=== PATIENT | female | born 2000 | race Two or more races ===

== ENCOUNTER 2021-05-02 23:44 | Emergency (ER) | payer MEDICAID ==
[~2021-05-02] VITALS: Ht 154.9 cm; Wt 61.7 kg
[2021-05-02 23:44] VITALS: BP 105/64
[2021-05-03 01:21] LABS: Basophils # (auto) 0.1 10 ^3/uL (0-0.2); Basophils % (auto) 0.7 % (0.0-2.0); Eosinophils # (auto) 0.7 10 ^3/uL (0-0.8); Eosinophils % (auto) 5.8 % (0.0-7.0); Hematocrit 41.9 % (36.0-46.0); Hemoglobin 14.4 g/dL (12.2-16.2); Lymphocytes # (auto) 4.7 10 ^3/uL (0.4-5.4); Lymphocytes % (auto) 37.2 % (10.0-50.0); Mean Corpuscular Hemoglobin 30.7 pg (28.0-32.0); Mean Corpuscular Hgb Conc. 34.4 g/dL (32.0-36.0); Mean Corpuscular Volume 89.2 fL (80.0-100.0); Monocytes # (auto) 0.7 10 ^3/uL (0-1.3); Monocytes % (auto) 5.3 % (0.0-12.0); Neutrophils # (auto) 6.5 10 ^3/uL (1.6-8.6); Nucleated Red Blood Cells % 0.1 %; Platelet Count (auto) 299 10^3/uL (140-450); Red Cell Distribution Width 12.8 % (11.8-14.3); White Blood Cell 12.8 10^3/uL (4.4-10.8)
[2021-05-03 01:35] LABS: Albumin 3.7 g/dL (3.4-5.0); Anion Gap 6 (5-15); Blood Urea Nitrogen 15 mg/dL (7-18); Calcium 8.5 mg/dL (8.5-10.1); Carbon Dioxide 26 mmol/L (21-32); Chloride 105 mmol/L (98-107); Glucose 88 mg/dL (74-106); Magnesium 1.7 mg/dL (1.6-2.6); Potassium 3.9 mmol/L (3.5-5.1); Sodium 137 mmol/L (136-145)
[2021-05-03 01:38] LABS: Alanine Aminotransferase 20 U/L (13-56); Aspartate Aminotransferase 18 U/L (15-37); BUN/Creatinine Ratio 17.4; GFR African American 107 mL/min; GFR Non-African American 89 mL/min
[2021-05-03 01:43] LABS: Alkaline Phosphatase 104 U/L (45-117); Bilirubin, Total 0.6 mg/dL (0.2-1.0); Total Protein 7.9 g/dL (6.4-8.2)
[2021-05-03 01:54] LABS: Urine Bacteria NONE SEEN /hpf (None Seen); Urine Blood Negative /uL (Negative); Urine Mucus FEW (None Seen); Urine Specific Gravity 1.017 (1.001-1.035); Urine WBC 6 /hpf (0 - 5)
== END 2021-05-03 03:41 | disposition left against medical advice (07) ==
LOC: ER 23:44
DX: R07.89 Other chest pain (principal); Z53.21 Procedure and treatment not carried out due to patient leaving prior to being seen by health care provider
CPT/HCPCS: 36415; 71045; 80053; 81001; 81025; 83735; 84484; 85025; 85049; 93005

== ENCOUNTER 2021-06-06 20:19 | Emergency (ER) | payer MEDICAID ==
[~2021-06-06] VITALS: Ht 154.9 cm; Wt 59.9 kg
[2021-06-06] MEDS ORDERED: SODIUM CHLORIDE 0.9% 1,000 ML IV ONE (21:30)
[2021-06-06] MEDS ORDERED: HYDROcodone-ACET 10/325MG TAB PO ONE (23:00)
[2021-06-06] MEDS ORDERED: ONDANSETRON ODT 4 MG TAB PO ONE (23:00)
[2021-06-06 23:58] VITALS: BP 111/76
== END 2021-06-07 00:20 | disposition home or self-care (01) ==
LOC: ER 20:20
DX: U07.1 COVID-19 (principal)
CPT/HCPCS: 99283; J7030; Q0162

== ENCOUNTER 2024-09-08 21:41 | Emergency (ER) | payer MEDICAID ==
[~2024-09-08] VITALS: Ht 154.9 cm; Wt 77.8 kg
[2024-09-08 21:48] VITALS: BP 126/58; PULSE 98; RESP 17; TEMP 98.9; O2SAT 97
[2024-09-08] MEDS: DexAMETHasone SOD PHOS 10MG/1ML VIAL INJ IM ONE (23:57)
[2024-09-08] MEDS: KETOROLAC TROMETH 60MG/2ML VIAL IM ONE (23:58)
[2024-09-09] MEDS ORDERED: METH4PAK PO (00:19)
== END 2024-09-09 00:19 | disposition home or self-care (01) ==
LOC: ER 21:41
DX: S33.5XXA Sprain of ligaments of lumbar spine, initial encounter (principal); X58.XXXA Exposure to other specified factors, initial encounter; Y93.89 Activity, other specified; Y92.89 Other specified places as the place of occurrence of the external cause; Y99.8 Other external cause status
CPT/HCPCS: 72100; 96372

== ENCOUNTER 2025-01-16 13:25 | Emergency (ER) | payer MEDICAID ==
[~2025-01-16] VITALS: Ht 154.9 cm; Wt 76.0 kg
[~2025-01-16 13:25] MED LIST: METH4PAK PO
--- NOTE | 2025-01-16 15:09 | DVH ---
CLINICAL INDICATION: trauma TECHNIQUE: 2 radiographic views of the right shoulder were obtained. Comparison: None FINDINGS/IMPRESSION: There is no evidence of acute fracture or dislocation. The visualized joint space is well maintained. The alignment is anatomical. There is no radiopaque foreign body.
[2025-01-16] MEDS ORDERED: NAPR-746 PO (15:40)
[2025-01-16] MEDS ORDERED: PRED20TA2 PO (15:40)
--- NOTE | 2025-01-16 15:40 | ED.PDOC ---
Musculoskeletal HPI Comments 24-year-old female presents for a possible fracture to the right shoulder after she slipped at [employer] last night. Landed on her right shoulder and no complains of pain with flexion-extension. Denies numbness tingling to the affected extremity denies nausea vomiting diarrhea Chief Complaint: Upper Extremity Time Seen by MD: 14:25 Primary Care Provider: [facility] Reviewed Notes: Nurses Notes Allergies: Coded Allergies: NO KNOWN ALLERGIES (Unverified , 05/03/21) Home Meds Active Scripts Methylprednisolone (Medrol Dosepak) 4 Mg Moi, 4 MG PO UD for 6 Days, #21 TAB UAD Prov:MARSHALL BUENO MATE FOURTH 09/09/24 Information Source: Patient Mode of Arrival: Ambulatory Past Medical History PAST MEDICAL HISTORY: Denies Surgical History: Denies all surgeries CAR DRIVER History: No Pertinent CAR DRIVER History Family History Family History: Reviewed,noncontributory to illness, No family hx of Cancer, No family hx of DM, No family hx of Heart desiree, No family hx of HTN, No family hx ofKidney desiree, No family hx of Liver desiree, No family hx of Lung desiree, No family hx of Stroke Social History Smoker: Non-Smoker Alcohol: Denies ETOH Use Drugs: Denies Drug Use Lives In: Home X-Ray, Labs, Meds, VS Vital Signs Date Time Temp Pulse Resp B/P (MAP) Pulse Ox O2 Delivery O2 Flow Rate FiO2 01/16/25 13:55 98.1 87 18 128/78 (95) 100 Departure 1 Departure Time of Disposition: 15:39 Impression: Primary Impression: Cervical radiculopathy Disposition: HOME / SELF CARE / HOMELESS Condition: Stable e-Prescriptions Prednisone (Prednisone) 20 Mg Tab 40 MG PO DAILY for 5 Days, #10 MG 0 Refills Prov: DOV GUZMAN CERTIFIED CODER 01/16/25 Naproxen (Naproxen) 500 Mg Tab 500 MG PO BIDPC for 10 Days, #20 TAB 0 Refills Prov: DOV GUZMAN CERTIFIED CODER 01/16/25 Discharged With: Self DOV GUZMAN CERTIFIED CODER Jan 16, 2025 15:40
[2025-01-16 15:42] VITALS: BP 128/78; PULSE 87; RESP 18; TEMP 98.1; O2SAT 100
== END 2025-01-16 15:45 | disposition home or self-care (01) ==
LOC: ER 13:25
DX: M54.12 Radiculopathy, cervical region (principal)
CPT/HCPCS: 73030

== ENCOUNTER 2025-09-02 21:03 | Inpatient (IN) | payer MEDICAID ==
[~2025-09-02] VITALS: Ht 154.9 cm; Wt 88.8 kg
[~2025-09-02 21:03] MED LIST changes: +NAPR-746 PO; +PRED20TA2 PO
--- NOTE | 2025-09-02 21:57 | ED.PDOC ---
History of Present Illness HPI Comments 25F presents to the ER and the c/c of ABD pain. Pt reports on having epigastric pain which radiates down for the past week and is associated w/ constipation for 4 days and N/V. Pt's LMP was 2 years ago. Denies any other symptoms at this time. Denies chills, fever, /D, SOB, CP. Denies any other associated symptom's, modifiers, or recent injuries or sick contact at this time. Chief Complaint: Abdominal Pain Time Seen by MD: 21:55 Primary Care Provider: [facility] Reviewed Notes: Nurses Notes, Medications, Allergies Allergies: Coded Allergies: NO KNOWN ALLERGIES (Unverified , 05/03/21) Home Meds Active Scripts Prednisone (Prednisone) 20 Mg Tab, 40 MG PO DAILY for 5 Days, #10 MG 0 Refills Prov:DOV GUZMAN V/STOL LANDING SIGNAL OFFICER 01/16/25 Naproxen (Naproxen) 500 Mg Tab, 500 MG PO BIDPC for 10 Days, #20 TAB 0 Refills Prov:DOV GUZMAN V/STOL LANDING SIGNAL OFFICER 01/16/25 Methylprednisolone (Medrol Dosepak) 4 Mg Moi, 4 MG PO UD for 6 Days, #21 TAB UAD Prov:MARSHALL BUENO PHYSICAL DIRECTOR 09/09/24 Information Source: Patient Mode of Arrival: Ambulatory Severity: Moderate Timing: Days Duration: Since onset, Days Prehospital treatment: None Past Medical History PAST MEDICAL HISTORY: Denies Surgical History: Denies all surgeries WINDOWS SERVER ARCHITECT History: No Pertinent WINDOWS SERVER ARCHITECT History Family History Family History: Reviewed,noncontributory to illness, Unknown Social History Smoker: Non-Smoker Alcohol: Denies ETOH Use Drugs: Denies Drug Use Lives In: Home Constitutional: denies: chills, diaphoresis, fatigue, fever, malaise, sweats, weakness, others EENTM: denies: blurred vision, double vision, ear bleeding, ear discharge, ear drainage, ear pain, ear ringing, eye pain, eye redness, hearing loss, mouth pain, mouth swelling, nasal discharge, nose bleeding, nose congestion, nose pain, photophobia, tearing, throat pain, throat swelling, voice changes, others Respiratory: denies: cough, hemoptysis, orthopnea, SOB at rest, shortness of breath, SOB with excertion, stridor, wheezing, others Cardiovascular: denies: chest pain, dizzy spells, diaphoresis, Dyspnea on exertion, edema, irregular heart beat, left arm pain, lightheadedness, palpitations, PND, syncope, others Gastrointestinal: reports: abdominal pain, constipated, nausea, vomiting; denies: abdomen distended, blood streaked bowels, diarrhea, dysphagia, difficulty swallowing, hematemesis, melena, poor appetite, poor fluid intake, rectal bleeding, rectal pain, others Genitourinary: denies: abnormal vagina bleeding, burning, dyspareunia, dysuria, flank pain, frequency, hematuria, incontinence, pain, , vagina discharge, urgency, others Neurological: denies: dizziness, fainting, headache, left sided numbness, left sided weakness, numbness, paresthesia, pre-existing deficit, right sided numbness, right sided weakness, seizure, speech problems, tingling, tremors, weakness, others Musculoskeletal: denies: back pain, gout, joint pain, joint swelling, muscle pain, muscle stiffness, neck pain, others Integumetry: denies: bruises, change in color, change in hair/nails, dryness, laceration, lesions, lumps, rash, wounds, others Allergic/Immunocompromised: denies: Difficulty Healing, Frequent Infections, Hives, Itching, others Hematologic/Lymphatic: denies: anemia, blood clots, easy bleeding, easy bruising, swollen glands, others Endocrine: denies: excessive hunger, excessive sweating, excessive thirst, excessive urination, flushing, intolerance to cold, intolerance to heat, u nexplained weight gain, unexplained weight loss, others Psychiatric: denies: anxiety, bipolar disorder, depression, hopeless, panic disorder, schizophrenia, sleepless, suicidal, others All Other Systems: Reviewed and Negative Physical Exam General Appearance: No Apparent Distress, Normal HEENT: Normal ENT Inspection, Pharynx Normal, TMs Normal Neck: Full Range of Motion, Non-Tender, Normal, Normal Inspection Respiratory: Chest Non-Tender, Lungs Clear, No Accessory Muscle Use, No Respiratory Distress, Normal Breath Sounds Cardiovascular: No Edema, No JVD, No Murmur, No Gallop, Normal Peripheral P ulses, Regular Rate/Rhythm Breast Exam: Deferred Gastrointestinal: No Organomegaly, Non Tender, No Pulsatile Mass, Normal Bowel Sounds, Soft Genitalia: Deferred Pelvic: Deferred Rectal: Deferred Extremities: No calf tenderness, Normal capillary refill, Normal inspection, Normal range of motion, Non-tender, No pedal edema Musculoskeletal : Apperance: Normal Neurologic: Alert, filling station equipment mechanic II-XII nml as Tested, No Motor Deficits, Normal Affect, Normal Mood, No Sensory Deficits Cerebellar Function: Normal Reflexes: Normal Skin: Dry, Normal Color, Warm Lymphatic: No Adenopathy Was a procedure done? Was a procedure done?: No Differential Dx Considerations may include: Gastroenteritis, appendicitis, cholecystitis, diverticulitis, X-Ray, Labs, Meds, VS Vital Signs Date Time Temp Pulse Resp B/P (MAP) Pulse Ox O2 Delivery O2 Flow Rate FiO2 09/02/25 22:31 88 16 97 Room Air* 0 21 09/02/25 22:29 98.4 88 16 112/76 (88) 97 98.4 09/02/25 21:09 98.6 99 16 124/88 9 98.6 Lab Test 09/02/25 22:16 Range/Units White Blood Count 11.7 H 4.4-10.8 10^3/uL Red Blood Count 4.38 4.0-5.20 10^6/uL Hemoglobin 13.3 12.2-16.2 g/dL Hematocrit 38.6 36.0-46.0 % Mean Corpuscular Volume 88.0 80.0-100.0 fL Mean Corpuscular Hemoglobin 30.3 28.0-32.0 pg Mean Corpuscular Hemoglobin Concent 34.4 32.0-36.0 g/dL Red Cell Distribution Width 12.8 11.8-14.3 % Platelet Count 294 140-450 10^3/uL Mean Platelet Volume 8.3 6.9-10.8 fL Neutrophils (%) (Auto) 50.9 37.0-80.0 % Lymphocytes (%) (Auto) 37.6 10.0-50.0 % Monocytes (%) (Auto) 5.1 0.0-12.0 % Eosinophils (%) (Auto) 5.7 0.0-7.0 % Basophils (%) (Auto) 0.7 0.0-2.0 % Neutrophils # (Auto) 6.0 1.6-8.6 10 ^3/uL Lymphocytes # (Auto) 4.4 0.4-5.4 10 ^3/uL Monocytes # (Auto) 0.6 0-1.3 10 ^3/uL Eosinophils # (Auto) 0.7 0-0.8 10 ^3/uL Basophils # (Auto) 0.1 0-0.2 10 ^3/uL Nucleated Red Blood Cells 0.1 % Sodium Level 140 136-145 mmol/L Potassium Level 3.8 3.5-5.1 mmol/L Chloride Level 106 98-107 mmol/L Carbon Dioxide Level 26 20-31 mmol/L Anion Gap 8 5-15 Blood Urea Nitrogen 12 9-23 mg/dL Creatinine 0.79 0.550-1.02 mg/dL Glomerular Filtration Rate Calc 106 >90 mL/min BUN/Creatinine Ratio 15.2 10.0-20.0 Serum Glucose 88 74-106 mg/dL Calcium Level 9.0 8.7-10.4 mg/dL Total Bilirubin 0.4 0.2-1.0 mg/dL Aspartate Amino Transferase (AST) 20 13-40 U/L Alanine Aminotransferase (ALT) 17 7-40 U/L Alkaline Phosphatase 142 H 46-116 U/L Total Protein 7.6 5.7-8.2 g/dL Albumin 4.2 3.2-4.8 g/dL Lipase 46 12-53 U/L Current Medications Medications (Trade) Dose Ordered Sig/Demian Route Start Time Stop Time Status Last Admin Ketorolac Tromethamine (Toradol Injection) 30 mg ONCE ONCE IM 09/02/25 22:00 09/02/25 22:01 DC 09/02/25 22:18 X-Ray, Labs, Meds, VS Comment Imaging was reviewed by this provider, CT abdomen pelvis:Impression: Dilated 8 mm appendix with subtle surrounding inflammatory change. Favor early acute appendicitis. Correlation should be made with patient's clinical exam and laboratory values. Labs were reviewed by this provider, elevated white count Vital signs reviewed by this provider, clinically stable Patient be started on Flagyl and Rocephin Patient will be admitted for acute appendicitis Recommend general surgery consult in the morning Patient hemodynamically stable. Time of 1ST Reevaluation: 22:25 Reevaluation 1ST: Unchanged Patient Education/Counseling: Diagnosis, Treatment, Prognosis Family Education/Counseling: No Family Present SEPSIS Sepsis Screen Date sepsis recognized/suspect: Sep 02, 2025 Time Sepsis recognized/suspect: 2108 Recent Procedure: No On Antibiotic Therapy: No Respiratory Rate >20: No Heart Rate >90: Yes Temp<36 C (96.8 F) or >38.3 C: No SBP <90 or MAP <65 mmHG: No New Acute Mental Status Change: No Is the patient on CPAP, BIPAP,: No Physician Orders Urinalysis (09/02/25 22:00) Ct Ab Pel Wo Con-No Oral Or Iv (09/02/25 22:00) Metronidazole Ivpb Flagyl (09/03/25 00:00) Ceftriaxone Ivpb Rocephin (09/03/25 00:00) Vital Signs Date Time Temp Pulse Resp B/P (MAP) Pulse Ox O2 Delivery O2 Flow Rate FiO2 09/02/25 22:31 88 16 97 Room Air* 0 21 09/02/25 22:29 98.4 88 16 112/76 (88) 97 98.4 09/02/25 21:09 98.6 99 16 124/88 9 98.6 Laboratory Tests Test 09/02/25 22:16 White Blood Count 11.7 10^3/uL (4.4-10.8) H Medications Medications Dose Ordered Sig/Demian Route Start Time Stop Time Status Last Admin Dose Admin Ketorolac Tromethamine 30 mg ONCE ONCE IM 09/02/25 22:00 09/02/25 22:01 DC 09/02/25 22:18 Departure 1 Departure Time of Disposition: 23:58 Impression: Primary Impression: Appendicitis Qualified Codes: K35.30 - Acute appendicitis with localized peritonitis, without perforation or gangrene Disposition: ADMITTED INPATIENT Condition: Stable Discharged With: Self Critical Care Note Critical Care Time?: No Stability Stability form required: No I personally scribed for RADHA PRATT ([email or web address]) on 09/02/25 at 21:57. Electronically submitted by Syed Hurst ([email or web address]). RADHA PRATT Sep 02, 2025 21:57
[2025-09-02] MEDS: KETOROLAC TROMETH 30 MG/ML 1ML VIAL IM ONE (22:18)
[2025-09-02 22:24] LABS: Hematocrit 38.6 % (36.0-46.0); Hemoglobin 13.3 g/dL (12.2-16.2); Mean Corpuscular Hemoglobin 30.3 pg (28.0-32.0); Mean Corpuscular Volume 88.0 fL (80.0-100.0); Nucleated Red Blood Cells % 0.1 %
--- NOTE | 2025-09-02 22:30 | DVH ---
CLINICAL HISTORY: abd pain TECHNIQUE: CT of the abdomen and pelvis was performed without IV contrast. This exam was performed ac cording to our departmental dose optimization program. Up-to-date CT equipment and radiation dose red uction techniques are utilized as appropriate. CTDI 17 DLP 931 COMPARISON: None FINDINGS: Abdomen/Pelvis: The spleen, pancreas, adrenal glands, kidneys, liver, gallbladder, uterus, and bladder appear unremar kable. The abdominal aorta is normal in course and caliber. There are no significant atherosclerotic calcifi cations. There is no free intraperitoneal air or fluid. There is no enlarged abdominal pelvic lymph node. There is no bowel wall thickening or dilatation. The appendix is dilated with luminal caliber approac mark 8 mm. This slight surrounding inflammatory seen Other: The imaged lower thorax is unremarkable. No acute osseous abnormality is evident. Impression: Dilated 8 mm appendix with subtle surrounding inflammatory change. Favor early acute appendicitis. C orrelation should be made with patient's clinical exam and laboratory values.
[2025-09-02 22:31] VITALS: PULSE 88; RESP 16; O2SAT 97
[2025-09-02 22:41] LABS: Alanine Aminotransferase 17 U/L (7-40); Albumin 4.2 g/dL (3.2-4.8); Anion Gap 8 (5-15); BUN/Creatinine Ratio 15.2 (10.0-20.0); Blood Urea Nitrogen 12 mg/dL (9-23); Calcium 9.0 mg/dL (8.7-10.4); Carbon Dioxide 26 mmol/L (20-31); Chloride 106 mmol/L (98-107); Glucose 88 mg/dL (74-106); Lipase 46 U/L (12-53); Potassium 3.8 mmol/L (3.5-5.1); Sodium 140 mmol/L (136-145); Total Protein 7.6 g/dL (5.7-8.2)
[2025-09-02 22:42] LABS: Bilirubin, Total 0.4 mg/dL (0.2-1.0)
[2025-09-02 22:44] LABS: Alkaline Phosphatase 142 U/L (46-116)
[2025-09-03] VITALS (7 sets, daily range): BP systolic 93–114; BP diastolic 57–81; PULSE 83–94; RESP 16–17; TEMP 97.5–98.5; O2SAT 96–100
[2025-09-03] MEDS ORDERED: ONDANSETRON HCL 4 MG/2 ML VIAL IV PRN (01:45)
--- NOTE | 2025-09-03 01:50 | DVHHP2 ---
History of Present Illness Reason for Visit: Abdominal pain History of Present Illness 25-year-old female presents for evaluation of abdominal pain. Patient reports a two day history of epigastric abdominal pain that radiates to her mid abdomen. She also reports episodes of nausea. Patient states also having constipation for the past three days. No fever or chills. No other acute complaints reported. Past Medical History Denies Past Surgical History Denies Family History Noncontributory Smoke: No ALCOHOL: none Drugs: None Lives: with Family Review of Systems Review of Systems Review of systems are currently negative otherwise addressed in HPI. Allergies: Coded Allergies: NO KNOWN ALLERGIES (Unverified , 05/03/21) Medications Current Medications Medications Dose Ordered Sig/Demian Route Start Time Stop Time Status Last Admin Dose Admin Pantoprazole Sodium 40 mg DAILY IV 09/03/25 10:00 UNV Hydromorphone HCl 0.25 mg Q4HPRN PRN IV 09/03/25 01:45 UNV Ceftriaxone Sodium 50 ml @ 100 mls/hr DAILY@09 IV 09/03/25 09:00 UNV Metronidazole 100 ml @ 100 mls/hr Q8HR IV 09/03/25 06:00 UNV Ondansetron HCl 4 mg Q4HP PRN IV 09/03/25 01:45 UNV Exam Vital Signs Vital Signs Date Time Temp Pulse Resp B/P (MAP) Pulse Ox O2 Delivery O2 Flow Rate FiO2 09/03/25 01:28 98.2 85 16 120/79 (93) 99 98.2 09/02/25 22:31 Room Air* 0 21 Exam Gen: 25-year-old female in mild distress, obese Skin: Warm, dry, normal color and texture, no rash. HEENT: Normocephalic atraumatic, mucous membranes moist and pink. Neck: Cervical and supraclavicular nodes normal without enlargement, trachea is midline, thyroid gland is normal without masses. Pulmonary: Clear to auscultation and percussion bilaterally. Cardiac: Regular rate and rhythm. No murmur Abdomen: Soft, mid abdominal pain, nondistended, bowel sounds present all 4 quadrants, no guarding, no rigidity, no organomegaly. Extremities: No cyanosis, clubbing, no edema Neuro: Cranial nerves II through XII grossly intact, normal affect and speech, no focal motor deficits. Labs/Xrays ORDERING PHYSICIAN: RADHA PRATT PROCEDURE(s): ABPL - CT AB PEL WO CON-NO ORAL OR IV REASON: abd pain ORDER NUMBER(s): [id number], ACCESSION NUMBER(s): [id number] CLINICAL HISTORY: abd pain TECHNIQUE: CT of the abdomen and pelvis was performed without IV contrast. This exam was performed according to our departmental dose optimization program. Up-to-date CT equipment and radiation dose reduction techniques are utilized as appropriate. CTDI 17 DLP 931 COMPARISON: None FINDINGS: Abdomen/Pelvis: The spleen, pancreas, adrenal glands, kidneys, liver, gallbladder, uterus, and bladder appear unremarkable. The abdominal aorta is normal in course and caliber. There are no significant atherosclerotic calcifications. There is no free intraperitoneal air or fluid. There is no enlarged abdominal pelvic lymph node. There is no bowel wall thickening or dilatation. The appendix is dilated with luminal caliber approaching 8 mm. This slight surrounding inflammatory seen Other: The imaged lower thorax is unremarkable. No acute osseous abnormality is evident. Impression: Dilated 8 mm appendix with subtle surrounding inflammatory change. Favor early acute appendicitis. Correlation should be made with patient's clinical exam and laboratory values. Labs Test 09/02/25 22:16 Range/Units White Blood Count 11.7 H 4.4-10.8 10^3/uL Red Blood Count 4.38 4.0-5.20 10^6/uL Hemoglobin 13.3 12.2-16.2 g/dL Hematocrit 38.6 36.0-46.0 % Mean Corpuscular Volume 88.0 80.0-100.0 fL Mean Corpuscular Hemoglobin 30.3 28.0-32.0 pg Mean Corpuscular Hemoglobin Concent 34.4 32.0-36.0 g/dL Red Cell Distribution Width 12.8 11.8-14.3 % Platelet Count 294 140-450 10^3/uL Mean Platelet Volume 8.3 6.9-10.8 fL Neutrophils (%) (Auto) 50.9 37.0-80.0 % Lymphocytes (%) (Auto) 37.6 10.0-50.0 % Monocytes (%) (Auto) 5.1 0.0-12.0 % Eosinophils (%) (Auto) 5.7 0.0-7.0 % Basophils (%) (Auto) 0.7 0.0-2.0 % Neutrophils # (Auto) 6.0 1.6-8.6 10 ^3/uL Lymphocytes # (Auto) 4.4 0.4-5.4 10 ^3/uL Monocytes # (Auto) 0.6 0-1.3 10 ^3/uL Eosinophils # (Auto) 0.7 0-0.8 10 ^3/uL Basophils # (Auto) 0.1 0-0.2 10 ^3/uL Nucleated Red Blood Cells 0.1 % Sodium Level 140 136-145 mmol/L Potassium Level 3.8 3.5-5.1 mmol/L Chloride Level 106 98-107 mmol/L Carbon Dioxide Level 26 20-31 mmol/L Anion Gap 8 5-15 Blood Urea Nitrogen 12 9-23 mg/dL Creatinine 0.79 0.550-1.02 mg/dL Glomerular Filtration Rate Calc 106 >90 mL/min BUN/Creatinine Ratio 15.2 10.0-20.0 Serum Glucose 88 74-106 mg/dL Calcium Level 9.0 8.7-10.4 mg/dL Total Bilirubin 0.4 0.2-1.0 mg/dL Aspartate Amino Transferase (AST) 20 13-40 U/L Alanine Aminotransferase (ALT) 17 7-40 U/L Alkaline Phosphatase 142 H 46-116 U/L Total Protein 7.6 5.7-8.2 g/dL Albumin 4.2 3.2-4.8 g/dL Lipase 46 12-53 U/L SEPSIS Sepsis Screen Date sepsis recognized/suspect: Sep 02, 2025 Time Sepsis recognized/suspect: 2108 Recent Procedure: No On Antibiotic Therapy: No Respiratory Rate >20: No Heart Rate >90: Yes Temp<36 C (96.8 F) or >38.3 C: No SBP <90 or MAP <65 mmHG: No New Acute Mental Status Change: No Is the patient on CPAP, BIPAP,: No Physician Orders Urinalysis (09/02/25 22:00) Ct Ab Pel Wo Con-No Oral Or Iv (09/02/25 22:00) PTPTT (09/03/25 01:43) Type And Screen (09/03/25 01:43) Pantoprazole (Protonix) (09/03/25 10:00) NS (09/03/25 01:45) * Surgical Consult (09/03/25 ) Chest Xray 1 View (09/03/25 01:43) Hydromorphone Injection (Dilaudid Inject (09/03/25 01:45) Ceftriaxone Ivpb Rocephin (09/03/25 09:00) Metronidazole Ivpb Flagyl (09/03/25 06:00) Admit (09/03/25 01:43) Ondansetron Hcl (Zofran) (09/03/25 01:45) Complete Blood Count (09/04/25 04:00) Comprehensive Metabolic Panel (09/04/25 04:00) Npo (Nothing By Mouth) Diet (09/03/25 Breakfast) Condition: Stable (09/03/25 01:43) Bedrest With Bathroom Privileg (09/03/25 01:43) Vital Signs Date Time Temp Pulse Resp B/P (MAP) Pulse Ox O2 Delivery O2 Flow Rate FiO2 09/03/25 01:28 98.2 85 16 120/79 (93) 99 98.2 09/02/25 22:31 88 16 97 Room Air* 0 21 09/02/25 22:29 98.4 88 16 112/76 (88) 97 98.4 09/02/25 21:09 98.6 99 16 124/88 9 98.6 Laboratory Tests Test 09/02/25 22:16 White Blood Count 11.7 10^3/uL (4.4-10.8) H Medications Medications Dose Ordered Sig/Demian Route Start Time Stop Time Status Last Admin Dose Admin Ceftriaxone Sodium 50 ml @ 100 mls/hr ONCE ONCE IV 09/03/25 00:00 09/03/25 00:29 DC 09/03/25 00:54 100 MLS/HR Ketorolac Tromethamine 30 mg ONCE ONCE IM 09/02/25 22:00 09/02/25 22:01 DC 09/02/25 22:18 30 MG Metronidazole 100 ml @ 100 mls/hr ONCE ONCE IV 09/03/25 00:00 09/03/25 00:59 DC 09/03/25 00:29 100 MLS/HR Assessment/Plan Assessment/Plan Assessment Acute abdominal pain Acute appendicitis Plan Admit the patient to Med surge to the hospitalist Surgical consultation NPO Rocephin/Flagyl Maintenance IV fluids Pain management Continue treatment per orders. Plan discussed with: Patient My Orders Orders - ANTHONY MIDDLETON Procedure Category Date Status Time PTPTT LAB 09/03/25 Logged 01:43 Type And Screen BBK 09/03/25 Logged 01:43 Pantoprazole PHA 09/03/25 Transmitted (Protonix) 10:00 NS PHA 09/03/25 Transmitted 01:45 * Surgical Consult CONS 09/03/25 Verified Chest Xray 1 View XY 09/03/25 Logged 01:43 Hydromorphone PHA 09/03/25 Verified Injection (Dilaudid 01:45 Ceftriaxone Ivpb PHA 09/03/25 Transmitted Rocephin 09:00 Metronidazole Ivpb PHA 09/03/25 Transmitted Flagyl 06:00 Admit ADMIT 09/03/25 Transmitted 01:43 Ondansetron Hcl PHA 09/03/25 Transmitted (Zofran) 01:45 Complete Blood Count LAB 09/04/25 Verified 04:00 Comprehensive LAB 09/04/25 Verified Metabolic Panel 04:00 Npo (Nothing By DIET 09/03/25 Transmitted Mouth) Diet Breakfast Condition: Stable AN 09/03/25 Transmitted 01:43 Bedrest With Bathroom AN 09/03/25 Transmitted Privileg 01:43 Date of Service: Sep 03, 2025 Billing Provider: ANTHONY MIDDLETON Common Visit Codes: [id number] INP/OBS CARE (MOD) ANTHONY MIDDLETON Sep 03, 2025 01:50
[2025-09-03 02:20] LABS: INR 1.0 (0.9-1.15); Partial Thromboplastin Time 28.5 SEC (24.5-34.5); Prothrombin Time 10.6 sec (9.3-11.8)
[2025-09-03] MEDS: HYDROmorphone HCL 2 MG/ML VL/or syr IV PRN ×2 (02:54→13:32)
[2025-09-03] MEDS: SODIUM CHLORIDE 0.9% 1,000 ML IV ONE (03:02)
[2025-09-03 03:04] LABS: Urine Protein, UAD TRACE (Negative)
--- NOTE | 2025-09-03 05:38 | DVH ---
CHEST RADIOGRAPH Indication: preop Technique: 1 view Comparison: CHEST PORTABLE on DOS: 05/03/21 FINDINGS: Lines and Tubes: None. Lungs/Pleura: No focal consolidation, pleural effusion or pneumothorax. Cardiomediastinum: Unremarkable. Other: No acute osseous abnormality. IMPRESSION: 1. No acute cardiopulmonary abnormality.
[2025-09-03] MEDS: PANTOPRAZOLE 40 MG/10 ML VIAL INJ IV SCH (09:56)
[2025-09-03] MEDS ORDERED: KETAMINE 50mg/ML 1ml syringe ONE (11:28)
[2025-09-03] MEDS ORDERED: fentaNYL CITRATE 100 MCG/2 ML VL ONE (11:28)
[2025-09-03] MEDS ORDERED: LIDOCAINE 1% INJ PF 5ML AMP ONE (11:29)
[2025-09-03] MEDS ORDERED: PROPOFOL 10 MG/ML 20 ML IV ONE (11:29)
[2025-09-03] MEDS ORDERED: SODIUM CHLORIDE LOCK 10 ML ONE (11:29)
[2025-09-03] MEDS ORDERED: MIDAZOLAM HCL 2MG/2ML 2ml VIAL (1mg/ml) ONE (11:29)
[2025-09-03] MEDS ORDERED: ONDANSETRON HCL 4 MG/2 ML VIAL ONE (11:29)
[2025-09-03] MEDS ORDERED: LIDOCAINE 2% TOPICAL JELLY 5 ML URJT TOP ONE (11:29)
[2025-09-03] MEDS ORDERED: MEPERIDINE HCL (25 MG/ML) 1ML VIAL ONE (11:29)
[2025-09-03] MEDS ORDERED: ACETAMINOPHEN 325 MG TAB PO PRN (11:30)
[2025-09-03] MEDS ORDERED: HYDROcodone-ACET 5/325MG TAB PO PRN (11:30)
[2025-09-03] MEDS ORDERED: SODIUM CHLORIDE 0.9% 1,000 ML IV SCH (11:30)
--- NOTE | 2025-09-03 11:34 | DVHPN2 ---
Progress Note Date Seen: Sep 03, 2025 Medical Necessity Reason Pt with a Central, PICC or Fol: No Subjective Patient reports: No new complaints Review of Systems: HEENT:Normal, CVS:Normal, RESPIRATORY:Normal, GI:Normal, :Normal, MSK:Normal, NEURO:Normal Objective vital signs Vital Sign Date Time Temp Pulse Resp B/P (MAP) Pulse Ox O2 Delivery O2 Flow Rate FiO2 09/03/25 09:56 83 17 118/60 09/03/25 09:00 97.5 100 97.5 09/03/25 02:28 Room Air* 0 21 Total Intake and Output 09/02/25 09/02/25 09/03/25 15:00 23:00 07:00 Intake Total 0 ml Balance 0 ml medications Current Medications Medications Dose Ordered Sig/Demian Route Start Time Stop Time Status Last Admin Dose Admin Pantoprazole Sodium 40 mg DAILY IV 09/03/25 10:00 09/03/25 09:56 40 MG Hydromorphone HCl 0.25 mg Q4HPRN PRN IV 09/03/25 01:45 09/03/25 09:00 0.25 MG Ceftriaxone Sodium 50 ml @ 100 mls/hr DAILY@09 IV 09/03/25 09:00 09/03/25 09:56 100 MLS/HR Metronidazole 100 ml @ 100 mls/hr Q8H IV 09/03/25 08:00 09/03/25 08:21 100 MLS/HR Ondansetron HCl 4 mg Q4HP PRN IV 09/03/25 01:45 Examination: GENERAL:Normal, HEENT:Normal, NECK:Normal, LUNGS:Normal, CVS:Normal, ABDOMEN:Normal, MSK:Normal, SKIN:Normal, NEURO:Normal, :Normal laboratory and microbiology Laboratory Tests 09/02/25 22:16 Test 09/02/25 22:16 Range/Units Serum Glucose 88 74-106 mg/dL Problem List/Assessment/Plan Problem List/Assessment/Plan #1 acute appy with ?sepsis: ivf, iv antibiotics, surg today #2 obesity Plan discussed with: Patient My Orders My Orders Orders - ANTHONY MARTINEZ MD Procedure Category Date Status Time Hydrocodone-Acet PHA 09/03/25 Transmitted 5/325mg Tab ([place] 11:30 Acetaminophen Tablet PHA 10/28/25 Transmitted (Tylenol Tablet) 11:30 Complete Blood Count LAB 09/04/25 Verified 06:00 Comprehensive LAB 09/04/25 Verified Metabolic Panel 06:00 NS PHA 09/03/25 Verified 11:30 Date of Service: Sep 03, 2025 Billing Provider: ANTHONY MARTINEZ MD Common Visit Codes: [id number] INP/OBS CARE(HIGH) ANTHONY MARTINEZ MD Sep 03, 2025 11:34
--- NOTE | 2025-09-03 11:49 | DVHINCON2 ---
Date of service: Sep 03, 2025 Allergies: Coded Allergies: NO KNOWN ALLERGIES (Unverified , 05/03/21) Current Medications Current Medications Medications (Trade) Dose Ordered Sig/Demian Route PRN Reason Start Time Stop Time Status Last Admin Pantoprazole Sodium (Protonix) 40 mg DAILY IV 09/03/25 10:00 09/03/25 09:56 Hydromorphone HCl (Dilaudid Injection) 0.25 mg Q4HPRN PRN IV MODERATE PAIN (4-6 PAIN SCALE) 09/03/25 01:45 09/03/25 09:00 Ceftriaxone Sodium 50 ml @ 100 mls/hr DAILY@09 IV 09/03/25 09:00 09/03/25 09:56 Metronidazole 100 ml @ 100 mls/hr Q8H IV 09/03/25 08:00 09/03/25 08:21 Ondansetron HCl (Zofran) 4 mg Q4HP PRN IV NAUSEA / VOMITING 09/03/25 01:45 Acetaminophen/ Hydrocodone Bitart ([place]rett 5/325MG Tab) 1 tab Q6HPRN PRN PO MODERATE PAIN (4-6 PAIN SCALE) 09/03/25 11:30 Acetaminophen (Tylenol Tablet) 650 mg Q6HP PRN PO MILD PAIN (1-3 PAIN SCALE) 09/03/25 11:30 UNV Sodium Chloride 1,000 ml @ 100 mls/hr Q10H IV 09/03/25 11:30 UNV Vital Signs Vital Signs Date Time Temp Pulse Resp B/P (MAP) Pulse Ox O2 Delivery O2 Flow Rate FiO2 09/03/25 09:56 83 17 118/60 09/03/25 09:00 97.5 100 97.5 09/03/25 02:28 Room Air* 0 21 Labs/Diagnostic Data Labs Test 09/03/25 00:00 09/02/25 22:16 Range/Units Urine Color Yellow Yellow Urine Clarity Clear Clear Urine pH 6.5 5.0-9.0 Urine Specific [place] 1.037 H 1.001-1.035 Urine Protein Trace H Negative Urine Ketones Trace Negative Urine Blood Negative Negative /uL Urine Nitrite Negative Negative Urine Bilirubin Negative Negative Urine Urobilinogen 2 H Negative mg/dL Urine Leukocyte Esterase Negative Negative /uL Urine RBC None seen 0 - 4 /hpf Urine Microscopic WBC 1 0-5 /HPF Urine Squamous Epithelial Cells Few <5 /hpf Urine Bacteria None seen None Seen /hpf Urine Mucus Few None Seen Urine Glucose Normal Normal mg/dL White Blood Count 11.7 H 4.4-10.8 10^3/uL Red Blood Count 4.38 4.0-5.20 10^6/uL Hemoglobin 13.3 12.2-16.2 g/dL Hematocrit 38.6 36.0-46.0 % Mean Corpuscular Volume 88.0 80.0-100.0 fL Mean Corpuscular Hemoglobin 30.3 28.0-32.0 pg Mean Corpuscular Hemoglobin Concent 34.4 32.0-36.0 g/dL Red Cell Distribution Width 12.8 11.8-14.3 % Platelet Count 294 140-450 10^3/uL Mean Platelet Volume 8.3 6.9-10.8 fL Neutrophils (%) (Auto) 50.9 37.0-80.0 % Lymphocytes (%) (Auto) 37.6 10.0-50.0 % Monocytes (%) (Auto) 5.1 0.0-12.0 % Eosinophils (%) (Auto) 5.7 0.0-7.0 % Basophils (%) (Auto) 0.7 0.0-2.0 % Neutrophils # (Auto) 6.0 1.6-8.6 10 ^3/uL Lymphocytes # (Auto) 4.4 0.4-5.4 10 ^3/uL Monocytes # (Auto) 0.6 0-1.3 10 ^3/uL Eosinophils # (Auto) 0.7 0-0.8 10 ^3/uL Basophils # (Auto) 0.1 0-0.2 10 ^3/uL Nucleated Red Blood Cells 0.1 % Prothrombin Time 10.6 9.3-11.8 sec Prothrombin Time INR 1.00 0.9-1.15 Activated Partial Thromboplast Time 28.5 24.5-34.5 SEC Sodium Level 140 136-145 mmol/L Potassium Level 3.8 3.5-5.1 mmol/L Chloride Level 106 98-107 mmol/L Carbon Dioxide Level 26 20-31 mmol/L Anion Gap 8 5-15 Blood Urea Nitrogen 12 9-23 mg/dL Creatinine 0.79 0.550-1.02 mg/dL Glomerular Filtration Rate Calc 106 >90 mL/min BUN/Creatinine Ratio 15.2 10.0-20.0 Serum Glucose 88 74-106 mg/dL Calcium Level 9.0 8.7-10.4 mg/dL Total Bilirubin 0.4 0.2-1.0 mg/dL Aspartate Amino Transferase (AST) 20 13-40 U/L Alanine Aminotransferase (ALT) 17 7-40 U/L Alkaline Phosphatase 142 H 46-116 U/L Total Protein 7.6 5.7-8.2 g/dL Albumin 4.2 3.2-4.8 g/dL Lipase 46 12-53 U/L Assessment 25 year old female with 48 hour history of right lower quadrant abdominal PAIN, ABDOMEN SOFT, REBOUND.GUARDING, POSITIVE OBTURATOA DN PSOAS SIGNS, 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
[2025-09-03] MEDS ORDERED: METOCLOPRAMIDE HCL 5MG/ml INJ 2ml VIAL IV PRN (12:00)
[2025-09-03] MEDS ORDERED: HYDROmorphone HCL 2 MG/ML VL/or syr IV PRN (12:00)
[2025-09-03] MEDS ORDERED: MORPHINE SULFATE 4 MG/ML SYR/VIAL IV PRN (12:00)
[2025-09-03] MEDS: LIDOCAINE 1%-Mpf/Epinephrine 1:200,000 30ml VIAL ONE ×2 (12:38→14:06)
[2025-09-03] MEDS: BUPIVACAINE 0.25% INJ 50ML VIAL ONE (12:38)
[2025-09-03] MEDS ORDERED: MORPHINE SULFATE INJ 2 MG/ml SYRG IV PRN ×2 (12:41→13:00)
[2025-09-03] MEDS ORDERED: SUGAMMADEX 200mg/2ml Vial (100MG/ML) IV ONE (12:44)
--- NOTE | 2025-09-03 13:19 | DVHOP ---
DATE OF SURGERY: 09/03/2025 PREOPERATIVE DIAGNOSIS: Appendicitis. POSTOPERATIVE DIAGNOSES: Morbid obesity, intraabdominal adhesions, appendicitis. SURGEON: Rosendo Kim MD. FORENSIC SCIENCE TECHNICIAN: Yaniv Hope NP. ANESTHESIA: General endotracheal. ANESTHESIOLOGIST: Dr. Busby. PROCEDURE: Laparoscopy, laparoscopic appendectomy. DESCRIPTION OF PROCEDURE: Under general endotracheal anesthesia with the patient's skin prepped and draped, a supraumbilical incision was made and Veress needle inserted into the peritoneal cavity by the hanging drop technique in order to establish pneumoperitoneum to 15 mmHg pressure by insufflation with carbon dioxide. With the abdomen fully distended, the needle was removed and replaced with a 5 mm trocar port through which a 0-degree viewing laparoscope was inserted and subsequently due to much intraperitoneal adhesions, nontraditional ports were established through the infraumbilical skin somewhat to the right lateral extent of the abdominal wall and then a subxiphoid 5 mm port. These were done under direct vision, attempting to avoid any intraabdominal injury. Instrumentation was then introduced. Laparoscopy was performed revealing no obvious unexpected pathology. The appendix was found to be inflamed and densely adherent to surrounding viscera. A lysis of adhesions was accomplished. The appendix was mobilized and grasped with a [place] grasper. Subsequently, the appendix was traced to its confluence with the cecum at the base of the appendix at the conference with the cecum. The appendix was cross-clamped and divided with an Endo TAM stapler equipped with vascular gavin. Completely severed the appendix and mesoappendix. This specimen was then placed into a specimen extraction bag, which was withdrawn through the 10-mm port site. The right lower quadrant of the abdomen was profusely irrigated. Further inspection of the viscera was accomplished in order to ensure non-injury to any structures adjacent to the multiple adhesions. There was no evidence of any serosal injury. There was no evidence of bleeding. There was no evidence of any spill. The right lower quadrant was again profusely irrigated. Irrigant was aspirated. Hemostasis was meticulously accomplished and found to be complete. At the termination of the procedure, there was no evidence of bleeding from either the appendicectomy site or from the port sites. Instrumentation was withdrawn. Pneumoperitoneum was evacuated. Fascial defect closed using #0 Vicryl. 3-0 Monocryl sutures. Dermabond glue and Steri-Strips were used for approximation of the skin edges. The patient remained stable throughout the procedure and left the operating room following an accurate needle and sponge counts. The patient's family was thoroughly informed at [phone]. MD NIMA Steele/EDU TID: [id number] RECEIPT: [id number]
[2025-09-03] MEDS: SUCCINYLCHOLINE CHLORIDE 20 MG/ML 10ML VIAL IV ONE (14:06)
[2025-09-03] MEDS: ROCURONIUM 10MG/ML 10ML VIAL IV ONE (14:06)
[2025-09-03] MEDS: ONDANSETRON HCL 4 MG/2 ML VIAL IV PRN (16:55)
[2025-09-03] MEDS: KETOROLAC TROMETH 30 MG/ML 1ML VIAL IV ONE (16:55)
[2025-09-03] MEDS: D5W/SOD CHL 0.45%/KCL 20MEQ 1,000 ML IV SCH (16:56)
[2025-09-04 01:00] VITALS: BP 109/65; PULSE 100; RESP 18; TEMP 98.2; O2SAT 99
[2025-09-04 05:00] VITALS: BP 100/61; PULSE 77; RESP 17; TEMP 98.1; O2SAT 95
[2025-09-04 06:59] LABS: Hematocrit 35.4 % (36.0-46.0); Hemoglobin 12.4 g/dL (12.2-16.2); Mean Corpuscular Hemoglobin 31.0 pg (28.0-32.0); Mean Corpuscular Volume 88.9 fL (80.0-100.0); Nucleated Red Blood Cells % 0.1 %
[2025-09-04 07:13] LABS: Alanine Aminotransferase 13 U/L (7-40); Albumin 3.4 g/dL (3.2-4.8); Alkaline Phosphatase 113 U/L (46-116); Anion Gap 7 (5-15); Bilirubin, Total 0.7 mg/dL (0.2-1.0); Carbon Dioxide 25 mmol/L (20-31); Glucose 80 mg/dL (74-106); Potassium 3.8 mmol/L (3.5-5.1); Sodium 141 mmol/L (136-145); Total Protein 6.4 g/dL (5.7-8.2)
[2025-09-04 07:15] LABS: BUN/Creatinine Ratio 7.4 (10.0-20.0); Blood Urea Nitrogen < 5 mg/dL (9-23); Calcium 8.1 mg/dL (8.7-10.4); Chloride 109 mmol/L (98-107)
[2025-09-04 08:15] VITALS: RESP 16
[2025-09-04 09:00] VITALS: BP 114/71; PULSE 85; RESP 17; TEMP 98.2; O2SAT 94
[2025-09-04] MEDS: PANTOPRAZOLE 40 MG/10 ML VIAL INJ IV SCH (11:10)
--- NOTE | 2025-09-04 11:26 | DVHDS2 ---
Discharge Summary Date of Admission Sep 03, 2025 at 01:43 Date of Discharge: Sep 04, 2025 Labs/Diagnostic Data: Laboratory Results Test 09/04/25 06:10 09/03/25 18:32 09/03/25 00:00 09/02/25 22:16 White Blood Count 8.8 10^3/uL (4.4-10.8) Red Blood Count 3.98 10^6/uL (4.0-5.20) Hemoglobin 12.4 g/dL (12.2-16.2) Hematocrit 35.4 % (36.0-46.0) Mean Corpuscular Volume 88.9 fL (80.0-100.0) Mean Corpuscular Hemoglobin 31.0 pg (28.0-32.0) Mean Corpuscular Hemoglobin Concent 34.9 g/dL (32.0-36.0) Red Cell Distribution Width 12.5 % (11.8-14.3) Platelet Count 268 10^3/uL (140-450) Mean Platelet Volume 8.9 fL (6.9-10.8) Neutrophils (%) (Auto) 55.6 % (37.0-80.0) Lymphocytes (%) (Auto) 33.8 % (10.0-50.0) Monocytes (%) (Auto) 5.8 % (0.0-12.0) Eosinophils (%) (Auto) 4.5 % (0.0-7.0) Basophils (%) (Auto) 0.3 % (0.0-2.0) Neutrophils # (Auto) 4.9 10 ^3/uL (1.6-8.6) Lymphocytes # (Auto) 3.0 10 ^3/uL (0.4-5.4) Monocytes # (Auto) 0.5 10 ^3/uL (0-1.3) Eosinophils # (Auto) 0.4 10 ^3/uL (0-0.8) Basophils # (Auto) 0 10 ^3/uL (0-0.2) Nucleated Red Blood Cells 0.1 % Sodium Level 141 mmol/L (136-145) Potassium Level 3.8 mmol/L (3.5-5.1) Chloride Level 109 mmol/L (98-107) Carbon Dioxide Level 25 mmol/L (20-31) Anion Gap 7 (5-15) Blood Urea Nitrogen < 5 mg/dL (9-23) Creatinine 0.68 mg/dL (0.550-1.02) Glomerular Filtration Rate Calc 123 mL/min (>90) BUN/Creatinine Ratio 7.4 (10.0-20.0) Serum Glucose 80 mg/dL (74-106) Calcium Level 8.1 mg/dL (8.7-10.4) Total Bilirubin 0.7 mg/dL (0.2-1.0) Aspartate Amino Transferase (AST) 21 U/L (13-40) Alanine Aminotransferase (ALT) 13 U/L (7-40) Alkaline Phosphatase 113 U/L (46-116) Total Protein 6.4 g/dL (5.7-8.2) Albumin 3.4 g/dL (3.2-4.8) Beta HCG, Quantitative 0.4 mIU/mL (1.5-4.2) Urine Color Yellow (Yellow) Urine Clarity Clear (Clear) Urine pH 6.5 (5.0-9.0) Urine Specific [place] 1.037 (1.001-1.035) Urine Protein Trace (Negative) Urine Ketones Trace (Negative) Urine Blood Negative /uL (Negative) Urine Nitrite Negative (Negative) Urine Bilirubin Negative (Negative) Urine Urobilinogen 2 mg/dL (Negative) Urine Leukocyte Esterase Negative /uL (Negative) Urine RBC None seen /hpf (0 - 4) Urine Microscopic WBC 1 /HPF (0-5) Urine Squamous Epithelial Cells Few /hpf (<5) Urine Bacteria None seen /hpf (None Seen) Urine Mucus Few (None Seen) Urine Glucose Normal mg/dL (Normal) Prothrombin Time 10.6 sec (9.3-11.8) Prothrombin Time INR 1.00 (0.9-1.15) Activated Partial Thromboplast Time 28.5 SEC (24.5-34.5) Lipase 46 U/L (12-53) Other Laboratory Tests 09/04/25 06:10 Brief Hx & Hospital Course: see dictated note Condition at Discharge: Good Final Diagnosis/Problems List lap appy Discharge Disposition: Home Discharge Instruct/Medications Diet: Regular Activity: No Restrictions, As Tolerated Follow Up/Referral: schedule appt with dr Kim in 1 wk Medications: script to pharmacy Discharge Statement: "Patient was advised to return to the ER or call 911 if any headaches, dizziness, shortness of breath, chest pain, abdominal pain, bleeding, fevers, or worsening of medical condition. Patient was counseled about treatment plan, medications, possible side effects, patientverbalized understanding. All questions were answered to the best of my ability. This discharge took greater then 30 minutes in planning, reviewing documentation, counseling the patient, and discussing with other team members." ASSESSMENT ASSESSMENT Assessment lap appy Date of Service: Sep 04, 2025 Billing Provider: ANTHONY MARTINEZ MD Common Visit Codes: 80801-WXI/OBS DISCH DAY >30min ANTHONY MARTINEZ MD Sep 04, 2025 11:26
[2025-09-04] MEDS ORDERED: TRAM-626 PO (11:28)
[2025-09-04] MEDS ORDERED: CEPH500C PO (11:28)
[2025-09-04] MEDS ORDERED: DOCU-94 PO (11:28)
--- NOTE | 2025-09-04 12:32 | DVHPN2 ---
Subjective Date Seen: Sep 04, 2025 Post op day Post op day: 1 Patient reports: No new complaints Nursing reports: No new complaints General: Normal HNT: Normal Cardiovascular: Normal Respiratory: Normal Gastrointestinal: Normal Genitourinary: Normal Musculoskeletal: Normal Neurological: Normal Objective Vitals Vital Sign Date Time Temp Pulse Resp B/P (MAP) Pulse Ox O2 Delivery O2 Flow Rate FiO2 09/04/25 09:00 98.2 85 17 114/71 (85) 94 98.2 09/03/25 20:10 Room Air* 0 21 Total Intake and Output 09/03/25 09/03/25 09/04/25 15:00 23:00 07:00 Intake Total 250 ml 400 ml 1675 ml Balance 250 ml 400 ml 1675 ml Medications Current Medications Medications Dose Ordered Sig/[place] Route Start Time Stop Time Status Last Admin Dose Admin Hydromorphone HCl 0.25 mg Q4HPRN PRN IV 09/03/25 01:45 Hold 09/03/25 09:00 0.25 MG Ceftriaxone Sodium 50 ml @ 100 mls/hr DAILY@09 IV 09/03/25 09:00 09/04/25 11:16 100 MLS/HR Metronidazole 100 ml @ 100 mls/hr Q8H IV 09/03/25 08:00 09/04/25 08:16 100 MLS/HR Acetaminophen/ Hydrocodone Bitart 1 tab Q6HPRN PRN PO 09/03/25 11:30 Acetaminophen 650 mg Q6HP PRN PO 09/03/25 11:30 Potassium Chloride/Dextrose/ Sod Cl 1,000 ml @ 120 mls/hr Q8H20M IV 09/03/25 13:00 09/04/25 06:17 120 MLS/HR Morphine Sulfate 2 mg Q3HPRN PRN IV 09/03/25 13:00 Pantoprazole Sodium 40 mg DAILY IV 09/04/25 10:00 09/04/25 11:10 40 MG Ondansetron HCl 4 mg Q4HPRN PRN IV 09/03/25 13:00 09/03/25 16:55 4 MG General: Normal Head/Eyes: Normal ENT: Normal Neck: Normal, Supple Lungs: Normal, Normal inspection Cardiovascular: Normal, Regular rate and rhythm Abdominal: Normal, Soft Musculoskeletal: Normal Extremities: Normal Neurological: Normal, CNII-XII Intact Labs and Microbiology Laboratory Tests 09/04/25 06:10 Test 09/04/25 06:10 Range/Units Serum Glucose 80 74-106 mg/dL Ass/Plan Problem List #1 acute appy with ?sepsis: ivf, iv antibiotics, surg today #2 obesity Assessment/Plan s/p laparoscopic appendectomy POD#1 abdomen soft, non distended, appropriately tender tolerating diet passing gas wounds clean dry and intact labs and notes reviewed plan: ok to discharge per surgery point of view please send home with antibiotics may shower in 48 hours follow up in surgery clinic in two weeks Prognosis: Excellent Plan discussed with patient, Dr. Kim Visit Coding Surgery Date of Service if different f: Sep 04, 2025 Billing Provider: CORI KIM MD Surgery Visit Codes: [id number] INP/OBS CARE(HIGH) DIPTI SMART NP Sep 04, 2025 12:32
[2025-09-04 13:00] VITALS: BP 106/56; PULSE 70; RESP 17; TEMP 98.3; O2SAT 99
--- NOTE | 2025-09-04 13:37 | DVHDS ---
DATE OF DISCHARGE: 09/04/2025 HISTORY OF PRESENT ILLNESS: The patient is a 25-year-old lady who is admitted with complaints of abdominal pain and nausea. HOSPITAL COURSE: The patient had a CT of abdomen and pelvis that showed evidence of early acute appendicitis. The patient was seen in surgical consult by Dr. Kim. The patient underwent laparoscopic appendectomy on 09/03/2025. The patient currently is doing well and is tolerating oral diet. White count is within normal limits. She will be discharged home. She will be on tramadol p.r.n. for pain, Colace p.r.n. for constipation, and cephalexin 500 mg t.i.d. for 7 days. She will follow up with Dr. Kim in 1 week. FINAL DIAGNOSES: * Acute appendicitis status post laparoscopic appendectomy with likely sepsis. * Obesity. Time spent in discharge planning and review of plan with the patient and nursing was 37 minutes. MD EMILY Berry/EDU TID: [id number] RECEIPT: [id number]
== END 2025-09-04 15:10 | disposition home or self-care (01) | DRG 710 ==
LOC: ER 21:03 → OVERFLOW 09-03 01:43 → WEST WING 09-03 01:46
PROVIDERS: ADMIT Internal Medicine; ATTEND Internal Medicine
PROC: 0DNW4ZZ Release Peritoneum, Percutaneous Endoscopic Approach (ICD-10-PCS; 2025-09-03)
PROC: 0DTJ4ZZ Resection of Appendix, Percutaneous Endoscopic Approach (ICD-10-PCS; principal; 2025-09-03 12:02)
DX: A41.9 Sepsis, unspecified organism (principal); K35.80 Unspecified acute appendicitis; E66.01 Morbid (severe) obesity due to excess calories; K66.0 Peritoneal adhesions (postprocedural) (postinfection); Z68.35 Body mass index [BMI] 35.0-35.9, adult; Z79.899 Other long term (current) drug therapy
CPT/HCPCS: 36415; 71045; 74176; 80053; 81001; 83690; 84702; 85025; 85610; 85730; 86850; 86900; 86901; 96361; 96365; 96366; 96367; 96372; 96375; G0378; J0330; J1885; J2250; J2405; J2470; J2704; J3490